=== PATIENT | female | born 1960 | race Hispanic/Latino ===

== ENCOUNTER 2021-10-24 11:28 | Emergency (ER) | payer BC ==
[~2021-10-24] VITALS: Ht 167.6 cm; Wt 54.4 kg
== END 2021-10-24 12:54 | disposition home or self-care (01) ==
LOC: ER 12:18
DX: R05.9 Cough, unspecified (principal); J40 Bronchitis, not specified as acute or chronic; I10 Essential (primary) hypertension; E78.5 Hyperlipidemia, unspecified; Z95.0 Presence of cardiac pacemaker; Z95.4 Presence of other heart-valve replacement
CPT/HCPCS: 99282